=== PATIENT | male | born 1965 | race Caucasian/White ===

== ENCOUNTER 2017-11-13 17:00 | Emergency (ER) | payer OTHER ==
[2017-11-13 20:03] VITALS: BP 151/82
--- NOTE | 2017-11-13 20:47 | UC ---
Respiratory Complaint HPI - HPI Summary HPI Summary: 52 yo male with flu symptoms 2 weeks ago peristent cough since then now wheezing sorethroat hoarse no n/v/d no cp or sob - History of Current Complaint Chief Complaint: UCRespiratory Stated Complaint: COUGH, LOSS OF VOICE, ACHY Time Seen by Provider: 11/13/17 20:00 Hx Obtained From: Patient Onset/Duration: Gradual Onset Timing: Constant Severity Currently: Moderate Pain Intensity: 5 Pain Scale Used: 0-10 Numeric Character: Cough: Nonproductive Alleviating Factors: Nothing Associated Signs And Symptoms: Positive: Fever, Chills, Wheezing, Nasal Congestion, Hoarseness - Allergies/Home Medications Allergies/Adverse Reactions: Allergies Allergy/AdvReac Type Severity Reaction Status Date / Time No Known Allergies Allergy Verified 11/13/17 20:03 Home Medications: Home Medications Naproxen Sodium [Aleve] 440 mg PO 11/13/17 [History] PMH/Surg Hx/FS Hx/Imm Hx Previously Healthy: Yes - Surgical History Surgical History: Yes Surgery Procedure, Year, and Place: appy, groin hernia, jaw surgery with plates , right hand - Family History Known Family History: Positive: Cardiac Disease - Social History Alcohol Use: Occasionally Substance Use Type: None Smoking Status (MU): Never Smoked Tobacco Type: Smokeless Tobacco Amount Used/How Often: 1 can every 2-3 days Household Exposure Type: Cigarettes - Immunization History Most Recent Influenza Vaccination: none Most Recent Tetanus Shot: not known Review of Systems Constitutional: Fever, Chills, Fatigue Skin: Bruising Eyes: Negative ENT: Sore Throat, Nasal Discharge, Sinus Congestion Respiratory: Cough Cardiovascular: Negative Gastrointestinal: Negative Genitourinary: Negative Motor: Negative Neurovascular: Negative Musculoskeletal: Myalgia Neurological: Negative Psychological: Negative Is Patient Immunocompromised?: No All Other Systems Reviewed And Are Negative: Yes Physical Exam Triage Information Reviewed: Yes Appearance: Well-Appearing, No Pain Distress, Well-Nourished Vital Signs: Initial Vital Signs Temp 97.8 F 11/13/17 19:55 Pulse 71 11/13/17 19:55 Resp 18 11/13/17 19:55 BP 151/82 11/13/17 19:55 Pulse Ox 99 11/13/17 19:55 Vital Signs Reviewed: Yes Eyes: Positive: Conjunctiva Clear ENT: Positive: Hearing grossly normal, Hoarse voice, Uvula midline. Negative: Nasal drainage, TMs normal, TM bulging, Tonsillar swelling, Tonsillar exudate, Muffled voice, Dental tenderness, Sinus tenderness Neck: Positive: Supple, Nontender, No Lymphadenopathy Respiratory: Positive: Lungs clear, Normal breath sounds, No respiratory distress, No accessory muscle use Cardiovascular: Positive: RRR, No Murmur Musculoskeletal: Positive: ROM Intact, No Edema Neurological: Positive: Alert Psychological Exam: Normal Skin Exam: Normal UC Diagnostic Evaluation - Laboratory O2 Sat by Pulse Oximetry: 99 - normal/not hypoxic - Radiology Xray Interpretation: No Acute Changes Radiology Interpretation Completed By: Radiologist Respiratory Course/Dx - Differential Dx/Diagnosis Provider Diagnoses: bronchitis Discharge - Discharge Plan Condition: Stable Disposition: HOME Prescriptions: Amoxicillin PO (*) [Amoxicillin 875 MG (*)] 875 mg PO BID #14 tab predniSONE [Deltasone] 40 mg PO DAILY #8 tab Patient Education Materials: Acute Bronchitis (ED) Referrals: Joseph Seo [Primary Care Provider] - 5 Days Additional Instructions: use inhaler as directed recheck for new or worsening symptoms
--- NOTE | 2017-11-13 21:07 | RAD ---
INDICATION: Intermittent loss of voice for one week. Dry cough. Nonsmoker. COMPARISON: April 22, 2016 thoracic spine exam. TECHNIQUE: Dual energy PA and routine lateral views of the chest were obtained. REPORT: Moderate elevation of the RIGHT hemidiaphragm increased over the prior exam. Associated crowding of the RIGHT hilar markings. No alveolar infiltrate, focal pulmonary lesion, pleural effusion, pneumothorax. The heart, pulmonary vasculature, and mediastinal contours are unremarkable. IMPRESSION: Interval increase in elevation of the RIGHT hemidiaphragm compared with the 2016 exam. No evidence for pneumonia.
[2017-11-13] MEDS ORDERED: Amoxicillin PO (*) 500 MG CAP PO ONE (21:12)
[2017-11-13] MEDS ORDERED: Amoxicillin PO (*) 250 MG CAP PO ONE (21:12)
[2017-11-13] MEDS ORDERED: Albuterol HFA INHALER* 8 gm MDI INH ONE (21:13)
[2017-11-13] MEDS ORDERED: predniSONE TAB* 20 MG PO ONE (21:14)
== END 2017-11-13 21:32 | disposition home or self-care (01) ==
LOC: UCCORT 17:00
DX: J40 Bronchitis, not specified as acute or chronic (principal); F17.220 Nicotine dependence, chewing tobacco, uncomplicated
CPT/HCPCS: 71046; 87502; 87651; 99213; A9270-GY; G0463; J7512

== ENCOUNTER 2019-04-10 17:58 | Emergency (ER) | payer BC, OTHER ==
[2019-04-10 18:54] VITALS: BP 169/101
--- NOTE | 2019-04-10 19:33 | UC ---
Knee Pain HPI - HPI Summary HPI Summary: 53-year-old male comes in with a chief complaint of left knee pain. No specific injury. Pain is worse with ambulation and weightbearing and especially with stairs. Occasionally feels like it hyperextends. Pain started about a week and a half ago. He has been taking ibuprofen with minimal relief. Patient also reports he has chronic bilateral hip pain. He is interested in following up with orthopedics for his hip pain also. - History of Current Complaint Chief Complaint: UCLowerExtremity Stated Complaint: LEFT KNEE CONCERN Time Seen by Provider: 04/10/19 19:14 Pain Intensity: 8 - Allergies/Home Medications Allergies/Adverse Reactions: Allergies Allergy/AdvReac Type Severity Reaction Status Date / Time No Known Allergies Allergy Verified 04/10/19 18:54 Home Medications: Home Medications NK [No Home Medications Reported] 04/10/19 [History Confirmed 04/10/19] PMH/Surg Hx/FS Hx/Imm Hx Previously Healthy: Yes - Surgical History Surgical History: Yes Surgery Procedure, Year, and Place: appy, groin hernia, jaw surgery with plates , right hand - Family History Known Family History: Positive: Cardiac Disease - Social History Alcohol Use: Occasionally Substance Use Type: None Smoking Status (MU): Never Smoked Tobacco Type: Smokeless Tobacco Amount Used/How Often: 1 can every 2-3 days Household Exposure Type: Cigarettes - Immunization History Most Recent Influenza Vaccination: none Most Recent Tetanus Shot: not known Review of Systems All Other Systems Reviewed And Are Negative: Yes Constitutional: Positive: Negative Skin: Positive: Negative Eyes: Positive: Negative ENT: Positive: Negative Respiratory: Positive: Negative Cardiovascular: Positive: Negative Gastrointestinal: Positive: Negative Motor: Positive: Other - SEE HPI Neurovascular: Positive: Negative Musculoskeletal: Positive: Other: - SEE HPI Neurological: Positive: Negative Psychological: Positive: Negative Is Patient Immunocompromised?: No Physical Exam Triage Information Reviewed: Yes Appearance: Well-Appearing, Well-Nourished, Pain Distress - MILD WITH AMBULATION Vital Signs: Initial Vital Signs Temp 97.9 F 04/10/19 18:51 Pulse 68 04/10/19 18:51 Resp 22 04/10/19 18:51 BP 169/101 04/10/19 18:51 Pulse Ox 99 04/10/19 18:51 Vital Signs Reviewed: Yes Eye Exam: Normal Eyes: Positive: Conjunctiva Clear Neck: Positive: Supple Respiratory: Positive: No respiratory distress Musculoskeletal: Positive: Other: - Left knee is stable to exam. Patella is nontender with movement. No focal area of tenderness in the knee. There is some grinding with movement. Positive Starr's. Neurological: Positive: Alert Psychological: Positive: Age Appropriate Behavior Skin Exam: Normal Knee Pain Course/Dx - Course Course Of Treatment: I discussed the x-rays with the patient and his . I do not see any fracture radiologist reading is pending. Overall plan here was an Baudilio wrap ice anti-inflammatories and follow-up with orthopedics. The patient's chronic hip pain the plan will also be for him to follow-up with orthopedics for the hip pain. - Differential Dx/Diagnosis Provider Diagnosis: Left knee pain, Bilateral hip pain Discharge - Sign-Out/Discharge Documenting (check all that apply): Patient Departure All imaging exams completed and their final reports reviewed: No - Discharge Plan Condition: Stable Disposition: HOME Patient Education Materials: Knee Pain (ED) Referrals: Linda Hare MD [Primary Care Provider] - Pantera Brannon MD [Medical Doctor] - Additional Instructions: FOLLOW UP DR BRANNON, ORTHOPEDICS. GET REEVALUATED SOONER IF WORSE OR ANY QUESTIONS OR CONCERNS. - Billing Disposition and Condition Condition: STABLE Disposition: Home
--- NOTE | 2019-04-11 08:55 | UC ---
- Progress Note Progress Note: xray report left knee: IMPRESSION: NO ACUTE OSSEOUS INJURY. IF SYMPTOMS PERSIST, RECOMMEND REPEAT IMAGING. Course/Dx - Diagnoses Provider Diagnoses: Left knee pain, Bilateral hip pain Discharge - Sign-Out/Discharge Documenting (check all that apply): Patient Departure All imaging exams completed and their final reports reviewed: Yes - Discharge Plan Condition: Stable Disposition: HOME Patient Education Materials: Knee Pain (ED) Referrals: Linda Hare MD [Primary Care Provider] - Pantera Brnanon MD [Medical Doctor] - Additional Instructions: FOLLOW UP DR BRANNON, ORTHOPEDICS. GET REEVALUATED SOONER IF WORSE OR ANY QUESTIONS OR CONCERNS. - Billing Disposition and Condition Condition: STABLE Disposition: Home
== END 2019-04-10 19:40 | disposition home or self-care (01) ==
LOC: UCCORT 17:58
DX: M25.552 Pain in left hip (principal); M25.551 Pain in right hip; F17.290 Nicotine dependence, other tobacco product, uncomplicated
CPT/HCPCS: 99212; G0463

== ENCOUNTER 2019-04-18 17:39 | Emergency (ER) | payer OTHER ==
--- OUTSIDE RECORDS SUMMARY | 2019-04-18 18:40 | XMS REPORT | Continuity of Care Document ---
:1965 External Reference #:[id number] Author Name Rolf Rivas Care Team Providers Name Role Phone Linda Hare M.D. Primary Care Physician Unavailable Payers Date Identification Numbers Payment Provider Subscriber Policy Number: [id number] Emerson Carbone PayID: [id number] [address] [place] [address] Family History Date Family Member(s) Observation Comments General Cancer Father Alive And Well Mother Alive And Well Social History Type Date Description Comments Sex Unknown Marital Status Lives With Occupation [employer] Tobacco Use Start: Unknown Never Smoked Cigarettes Smokeless Tobacco Current Smokeless Tobacco User, Uses 5 Times Daily ETOH Use Denies alcohol use Tobacco Use Start: Unknown Patient has never smoked Recreational Drug Use Denies Drug Use Exercise Type/Frequency Exercises rarely Allergies, Adverse Reactions, Alerts Description No Known Drug Allergies Medications Active Medications SIG Qnty Indications Ordering Date Provider Cyclobenzaprine HCL 1 by mouth every 30tabs M51.16 Pantera Brannon, 2018 10mg 8 hours as MD Tablets needed spasm Turmeric take two Unknown 500mg Capsules capsules daily by mouth Vital Signs Date Vital Result Comment 04/17/2019 10:10am Height 68 inches 5'8" Weight 252.38 lb Heart Rate 72 /min BP Systolic Sitting 168 mmHg BP Diastolic Sitting 100 mmHg Respiratory Rate 18 /min Body Temperature 99.7 F Pain Level 6 BMI (Body Mass Index) 38.4 kg/m2 Plan of Treatment 04/17/2019 - Pantera Brannon, MDM51.16 Intervertebral disc disorders with radiculopathy, lumbar regNew Medication:Cyclobenzaprine HCL 10 mg - 1 by mouth every 8 hours as needed spasmFollow up:Follow up: spine [id number] Sciatica, left side
[2019-04-18] MEDS ORDERED: oxyCODONE TAB* 5 MG TAB PO ONE (20:39)
--- NOTE | 2019-04-18 20:43 | ED ---
Lower Extremity - HPI Summary HPI Summary: Patient complains of persistent left knee pain after injuring it 2 weeks ago. Patient was evaluated by [facility] 04/10/19 with negative x-ray. Patient also seen orthopedics yesterday, and states Ortho did not say or do much for him. Also complains of chronic left lower back pain, and chronic left hip pain. Denies any new injury, other pain injury or symptoms. Orthopedist was in [place], does not remember name. - History of Current Complaint Chief Complaint: EDExtremityLower Stated Complaint: LT KNEE INJURY PER PT Time Seen by Provider: 04/18/19 20:00 Hx Obtained From: Patient Mechanism Of Injury: Unknown Onset of Pain: Immediate, Hours Onset/Duration: Weeks Severity Initially: Moderate Severity Currently: Moderate Pain Intensity: 7 Pain Scale Used: 0-10 Numeric Timing: Intermittent Location: Is Discrete @ Character Of Pain: Throbbing Associated Signs And Symptoms: Positive: Knee Pain Aggravating Factor(s): Standing, Ambulation, Weight Bearing Alleviating Factor(s): Rest, Elevation Able to Bear Weight: Yes - Allergies/Home Medications Allergies/Adverse Reactions: Allergies Allergy/AdvReac Type Severity Reaction Status Date / Time No Known Allergies Allergy Verified 04/18/19 20:21 PMH/Surg Hx/FS Hx/Imm Hx Endocrine/Hematology History: Denies: Hx Anticoagulant Therapy Cardiovascular History: Denies: Hx Pacemaker/ICD History: Denies: Hx Dialysis Sensory History: Denies: Hx Eye Prosthesis Opthamlomology History: Denies: Hx Legally Blind EENT History: Denies: Hx Deafness Neurological History: Denies: Hx Dementia - Surgical History Surgery Procedure, Year, and Place: appy, groin hernia, jaw surgery with plates , right hand Infectious Disease History: No Infectious Disease History: Denies: Traveled Outside the [place] in Last 30 Days - Family History Known Family History: Positive: Cardiac Disease - Social History Alcohol Use: Occasionally Substance Use Type: Reports: None Smoking Status (MU): Never Smoked Tobacco Type: Smokeless Tobacco Amount Used/How Often: 1 can every 2-3 days Review of Systems Constitutional: Negative Eyes: Negative ENT: Negative Cardiovascular: Negative Respiratory: Negative Gastrointestinal: Negative Genitourinary: Negative Musculoskeletal: Other Skin: Negative Neurological: Negative Psychological: Normal All Other Systems Reviewed And Are Negative: Yes Physical Exam - Summary Physical Exam Summary: No swelling, deformity, ecchymosis, erythema, extra warmth to left knee. Mild pain with palpation of patellar space. Full range of motion of left knee. Calf soft nontender. No effusion. Triage Information Reviewed: Yes Vital Signs On Initial Exam: Initial Vitals Temp Pulse Resp BP Pulse Ox 98.5 F 85 16 183/109 95 04/18/19 17:41 04/18/19 17:41 04/18/19 17:41 04/18/19 17:41 04/18/19 17:41 Vital Signs Reviewed: Yes Appearance: Positive: Well-Appearing Skin: Positive: Warm Head/Face: Positive: Normal Head/Face Inspection Eyes: Positive: Normal Neck: Positive: Supple Respiratory/Lung Sounds: Positive: Clear to Auscultation Cardiovascular: Positive: Normal Abdomen Description: Positive: Nontender Musculoskeletal: Positive: Normal Neurological: Positive: Normal Psychiatric: Positive: Normal AVPU Assessment: Alert - [place] Coma Scale Best Eye Response: 4 - Spontaneous Best Motor Response: 6 - Obeys Commands Best Verbal Response: 5 - Oriented Coma Scale Total: 15 Diagnostics - Vital Signs Vital Signs Temp Pulse Resp BP Pulse Ox 04/18/19 17:41 98.5 F 85 16 183/109 95 - Laboratory Lab Statement: Any lab studies that have been ordered have been reviewed, and results considered in the medical decision making process. Lower Extremity Course/Dx - Course Course Of Treatment: Patient complains of persistent left knee pain after injuring it 2 weeks ago. Patient was evaluated by [facility] 04/10/19 with negative x-ray. Patient also seen orthopedics yesterday, and states Ortho did not say or do much for him. Also complains of chronic left lower back pain, and left hip pain. Denies any new injury, other pain injury or symptoms. Orthopedist was in [place], does not remember name. Vital signs within normal limits. Denies new injury. [facility] Patient advised to follow-up with orthopedics Dr. Borja for further evaluation of knee pain, hip pain and back pain. Patient understands and approves of plan. - Diagnoses Provider Diagnoses: Knee pain, acute, Back pain, Hip pain Discharge - Sign-Out/Discharge Documenting (check all that apply): Patient Departure Patient Received Moderate/Deep Sedation with Procedure: No - Discharge Plan Condition: Stable Disposition: HOME Prescriptions: Oxycodone HCl 5 mg PO TID 2 Days #6 tablet MDD 3 tabs Patient Education Materials: Knee Pain (ED), Chronic Back Pain (DC), Hip Pain ( ED) Referrals: Linda Hare MD [Primary Care Provider] - James Greenberg MD [Medical Doctor] - Additional Instructions: Follow-up with orthopedics Dr. Borja for further evaluation of left knee pain , left hip pain and back pain. Take pain medication as discussed. - Billing Disposition and Condition Condition: STABLE Disposition: Home
[2019-04-18 21:08] VITALS: BP 165/99
== END 2019-04-18 21:07 | disposition home or self-care (01) ==
LOC: ED 17:39
DX: M25.562 Pain in left knee (principal); M54.9 Dorsalgia, unspecified; M25.552 Pain in left hip
CPT/HCPCS: 99282; A9270-GY

== ENCOUNTER 2021-12-12 05:55 | Observation (INO) ==
[~2021-12-12 05:55] MED LIST: DiMENhydriNATE IV 50 mg/ml 1 ml VIAL IV PUSH PRN; HYDROmorphone 1 MG/1 ML SYRINGE IV PRN; Naloxone 0.4 mg VIAL 0.4 mg/ml 1 ml VIAL IV PRN; Ondansetron 4 mg VIAL 2 MG/ML 2 ml VIAL IV PRN
[2021-12-12] MEDS ORDERED: Lactated Ringers 1000 ml BAG 1,000 ML IV SCH ×2 (06:00→10:00)
[2021-12-12] MEDS ORDERED: Buffered Lidocaine 1% SYRIN 1 ml INTRADERM ONE (06:00)
[2021-12-12] MEDS ORDERED: ceFAZolin 1 GM ADVAN 1 GM ADDV.VIAL IVPB ONE ×2 (06:23→06:27)
[2021-12-12] MEDS ORDERED: Dexamethasone IV 4 MG/ML VIAL 1 ml VIAL ONE (07:09)
[2021-12-12] MEDS ORDERED: Lidocaine 2% PF 5 ML VIAL ONE (07:09)
[2021-12-12] MEDS ORDERED: Rocuronium 50 mg VIAL 10 mg/ml 5 ml VIAL (50 mg) ONE (07:09)
[2021-12-12] MEDS ORDERED: Midazolam 2 mg/2 ml VIAL 1 mg/ml 2 ml VIAL (2 mg) ONE (07:09)
[2021-12-12] MEDS ORDERED: Propofol 10 MG/ML 20 ML BTL ONE (07:09)
[2021-12-12] MEDS ORDERED: fentaNYL 250 mcg/5 ml 50 MCG/ML 5 ml VIAL (250 MCG) ONE (07:09)
[2021-12-12] MEDS ORDERED: Ondansetron 4 mg VIAL 2 MG/ML 2 ml VIAL ONE (07:09)
[2021-12-12] MEDS ORDERED: Ropivacaine 5 MG/ML 20 ML VIAL 0.5% (100 MG) ONE ×2 (07:53→10:13)
[2021-12-12] MEDS ORDERED: Ketamine HCL 50 mg/ml 10 ml VIAL (500 MG) ONE (07:56)
[2021-12-12] MEDS ORDERED: EPHEDrine (Pressors) 50 MG/ML VIAL ONE (08:24)
[2021-12-12] MEDS ORDERED: fentaNYL 100 mcg/2 ml 50 MCG/ML VIAL ONE (08:43)
[2021-12-12] MEDS ORDERED: HYDROmorphone 0.5 MG/0.5 ML SYRINGE ONE (08:44)
[2021-12-12] MEDS ORDERED: Acetaminophen IV 1 GM/100ML 100 ML IV ONE (08:59)
[2021-12-12] MEDS ORDERED: Lactulose 30 ml UDC PO PRN (09:10)
[2021-12-12] MEDS ORDERED: Magnesium Hydroxide LIQ 30 ML UDC PO PRN (09:10)
[2021-12-12] MEDS ORDERED: diPHENhydraMINE IV 50 MG/ML 1 ml VIAL (BENADRYL) IV PRN (09:10)
[2021-12-12] MEDS ORDERED: Ondansetron ODT 4 mg TAB 4 MG TAB PO PRN (09:10)
[2021-12-12] MEDS ORDERED: diPHENhydraMINE 25 mg TAB PO PRN (09:10)
[2021-12-12] MEDS ORDERED: Ondansetron 4 mg VIAL 2 MG/ML 2 ml VIAL IV PRN (09:10)
[2021-12-12] MEDS ORDERED: ceFAZolin 1 GM ADVAN 1 GM in NS 0.9% 50 ML 50 ML IVPB SCH (16:00)
[2021-12-12 16:05] VITALS: BP 146/73
[2021-12-12] MEDS ORDERED: Magnesium Hydroxide LIQ 30 ML UDC PO SCH (21:00)
[2021-12-12] MEDS ORDERED: Lisinopril/HCTZ 20/12.5 TB(NF) PO SCH (21:00)
[2021-12-13] MEDS ORDERED: DULoxetine DR 20 mg CAP PO SCH (09:00)
[2021-12-13] MEDS ORDERED: Vitamin THERAPEUTIC TAB PO SCH (09:00)
== END 2021-12-12 17:30 | disposition home or self-care (01) ==
LOC: AA 05:55 → INTOOBSV 05:55 → SSU 12:26
PROVIDERS: ADMIT Orthopaedic Surgery Adult Reconstructive Orthopaedic Surgery; ATTEND Orthopaedic Surgery Adult Reconstructive Orthopaedic Surgery